=== PATIENT | female | born 1970 | race Caucasian/White ===

== ENCOUNTER → 2021-01-30 09:43 | Outpatient (BNVA) | payer BC, SELFPAY | PROVIDERS: Family Provider Nurse Practitioner Family; PCP Nurse Practitioner Family; Visit Provider Nurse Practitioner Family | DX: R10.811 Right upper quadrant abdominal tenderness (principal); I10 Essential (primary) hypertension; R60.0 Localized edema | CPT/HCPCS: 80053; 80061 ==

== ENCOUNTER 2021-03-03 09:55 | Outpatient (CLI) | payer BC, SELFPAY ==
--- NOTE | 2021-03-03 10:15 | US_ITS ---
WS: [id number] ULTRASOUND ABDOMEN LIMITED CLINICAL INFORMATION: R10.811 - Right upper quadrant abdominal tenderness COMPARISON: None. FINDINGS: Patient not NPO Liver Size: Normal. Craniocaudal length: 15.2 cm. Echogenicity: Normal. Surface nodularity: None. Mass (size and location): None. Bile ducts Intrahepatic ducts: Normal. Common bile duct diameter: 0.3 cm. Gallbladder Cholelithiasis. Gallbladder is contracted. Gallstones: Present Gallbladder sludge: None. Gallbladder wall thickening: None. Pericholecystic fluid: None. Sonographic Lam sign: Absent. Pancreas Normal as visualized. Right kidney: Normal. Hydronephrosis: None. Size: 12.4 cm x 6.1 cm x 4.1 cm. Abdominal aorta and IVC Visualized portions are normal. Ascites: None. US/US gall bladder [id number] IMPRESSION: 1. Cholelithiasis. Gallbladder is contracted. Normal gallbladder wall. Normal common bile duct. 2. Normal liver. No intrahepatic biliary duct dilatation. 3. No hydronephrosis in right kidney.
== END 2021-03-03 09:56 | disposition home or self-care (01) ==
LOC: RAD 09:59
PROVIDERS: PCP Nurse Practitioner Family; Visit Provider Nurse Practitioner Family
DX: R10.811 Right upper quadrant abdominal tenderness (principal); K80.20 Calculus of gallbladder without cholecystitis without obstruction
CPT/HCPCS: 76705

== ENCOUNTER → 2021-03-18 10:05 | Outpatient (BNVA) | payer BC, SELFPAY | PROVIDERS: PCP Nurse Practitioner Family; Visit Provider Surgery | DX: K80.20 Calculus of gallbladder without cholecystitis without obstruction (principal); Z20.822 Contact with and (suspected) exposure to COVID-19 | CPT/HCPCS: 87635 ==

== ENCOUNTER 2021-03-25 08:17 | Day surgery (SDC) | payer BC, SELFPAY ==
[2021-03-24 11:50] VITALS: BMI 22.0
[2021-03-25] VITALS (10 sets, daily range): BP systolic 118–149; BP diastolic 64–88; PULSE 55–87; RESP 17–22; TEMP 36.1–36.5; O2SAT 94–99
--- NOTE | 2021-03-25 08:30 | W.PM.OPSUD ---
Surgery/Procedure H&P Update DATE OF PROCEDURE: March 25, 2021 DATE H&P PERFORMED: 03/10/21 H&P UPDATE INFORMATION: I have reviewed H&P completed within last 30 days, I have examined patient prior to procedure and No changes to prior documentation PREOP DIAGNOSIS: Cholelithiasis PLANNED PROCEDURE: Operation Date: 03/25/21 09:45 Proposed Procedures p Laparoscopic Cholecystectomy 80704 k80.20(Not Applicable) - Brody Montgomery MD
--- NOTE | 2021-03-25 08:30 | ANES.PREANE2 ---
Pre-Anesthetic Assessment Pre-Anesthetic Assessment: Height/Weight: Height 1.73 m Weight 65.771 kg Preop Diagnosis: Cholelithiasis Proposed Procedure: Operation Date: 03/25/21 09:45 Proposed Procedures p Laparoscopic Cholecystectomy 26158 k80.20(Not Applicable) - Brody Montgomery MD Familial anesthetic complications: none Was Beta Helga taken within 24 hours: Yes Was Clonidine taken within 24 hours: N/A Last intake: > 8 hrs Social: Social History: No alcohol and No tobacco Exam: Pre-Anes Outpt Exam: alert, oriented x 3, clear to auscultation bilaterally and regular rate & rhythm Airway: Cervical ROM: WNL MP: 2 Dentition: Full CV/HEM: CV/HEM: Arrythmia (tachycardia) Comments: Patient states metoprolol is for her heart rate, not for blood pressure Anesthetic Plan: ASA status: 1 Anesthesia: General Risk of > 500 ml blood loss (7ml/kg in children): No PFSH Anesthesia PFSH: Surgical History (Updated 03/10/21 @ 15:11 by Brody Montgomery MD) H/O left breast biopsy H/O neck surgery H/O wisdom tooth extraction Hx of breast biopsy Hx of hysterectomy Social History (Updated 03/10/21 @ 15:00 by Latoya Cross LPN) Smoking and tobacco status: never smoked Second hand smoke exposure: No Alcohol intake: current Alcohol intake frequency: holidays/special occasions only Household members: spouse Housing: House Marital status: Data Anesthesia Cardiac Studies: No Data to Display
[2021-03-25] MEDS: sodium chloride 0.9% 1,000 ML 30 ML IV (08:46)
[2021-03-25] MEDS: ondansetron 2 mg/ML SDV 2 mL 4 MG IVP ×3 (09:47→10:48)
[2021-03-25] MEDS: metoclopramide 5 mg/mL SDV 2 mL 10 MG IVP (09:57)
[2021-03-25] MEDS: scopolamine 1.5 Patch 1 PATCH TRANSDERMA (10:25)
--- NOTE | 2021-03-25 11:08 | P.OP_ITS ---
Operative Report Date of procedure: March 25, 2021 Pre-op Diagnosis: Cholelithiasis Post-op diagnosis: same Procedure Done: Laparoscopic cholecystectomy Specimens removed/disposition: Gallbladder Surgeon: Brody Montgomery Anesthesia: General Condition: stable Disposition: PACU Procedure: The patient was taken to the operating room and was intubated under general anesthesia. After the antibiotic had been administered, the abdomen was prepped and draped in a sterile manner. Using a #15 blade, a 1 centimeter infraumbilical curvilinear incision was made and using an open Tod technique the peritoneal cavity was entered. A 10 millimeter port was placed and 15 millimeters of pneumoperitoneum was created. A 10 millimeter, 30 degrees scope was then introduced. Three 5 millimeter ports were placed in the epigastric, midclavicular and the anterior axillary line two fingerbreadths below the costal margin on the right side under the direct visualization. Ratcheted forceps were introduced into the lateral most port and was used to retract the fundus of the gallbladder cephalad and using forceps the infundibulum of the gallbladder was retracted laterally. Using L-hook cautery the peritoneum overlying the Calot's triangle was opened medially and laterally until the cystic duct and the cystic artery were skeletonized. Dissection was carried along the body of the gallbladder and after ensuring critical view of safety, 4 clips applied on the cystic duct and 3 clips applied on the cystic artery and cut leaving, 3 clips on the remaining portion of the duct and 2 clips on the remaining portion of the artery. The rest of the gallbladder was dissected off the liver using L-hook cautery. There was no bleeding or bile leaking noted from the gallbladder fossa and the clips appeared to be in place. An EndoCatch bag was introduced to r emove the gallbladder. All the ports were removed under direct visualization and there was no bleeding noted from the port sites. The fascia of the umbilicus was closed using [id number] 0 Vicryl sutures and the subcutaneous tissue was approximated using 3-0 Vicryl sutures. The skin at all four ports were closed using 4-0 Monocryl and Dermabond. A total of 10 millimeters of 0.5% Marcaine was infiltrated around the port sites. The patient was stable throughout the procedure.
[2021-03-25] MEDS: diphenhydrAMINE 50 mg/mL SDV 1mL 12.5 MG IVP (11:22)
--- NOTE | 2021-03-25 15:32 | ANE.PACU2 ---
Inpatient post-anesthesia follow up: Airway intact: Yes Vital signs: Temperature 97 F Pulse Rate 69 Respiratory Rate 18 Blood Pressure 149/88 Pulse Oximetry 98 Oxygen Delivery Me thod Room Air Oxygen Flow Rate Fraction of Inspir ed Oxygen Hydration adequate: Yes Nausea and vomiting: No Pain level: 2 Mental status: Baseline
== END 2021-03-25 12:16 | disposition home or self-care (01) ==
PROVIDERS: PCP Nurse Practitioner Family; Visit Provider Surgery
PROC: 0FT44ZZ Resection of Gallbladder, Percutaneous Endoscopic Approach (ICD-10-PCS; CPT 47562; principal; 2021-03-25 09:45)
DX: K81.1 Chronic cholecystitis (principal)
CPT/HCPCS: 47562; 88304; 96365; J0690; J1200; J2405; J2704; J2710; J2765; J3010; J3490; J7030

== ENCOUNTER → 2021-09-30 09:48 | Outpatient (BNVA) | payer BC, SELFPAY | PROVIDERS: PCP Nurse Practitioner Family; Visit Provider Nurse Practitioner Family | DX: R53.83 Other fatigue (principal); T14.8XXA Other injury of unspecified body region, initial encounter; X58.XXXA Exposure to other specified factors, initial encounter | CPT/HCPCS: 80053; 83550; 84443; 85025 ==

== ENCOUNTER 2021-12-31 07:39 | Outpatient (CLI) | payer BC, SELFPAY ==
--- NOTE | 2021-12-31 07:51 | MM_ITS ---
WS: [id number] BILATERAL 3D TOMOSYNTHESIS DIGITAL DIAGNOSTIC MAMMOGRAPHY WITH CAD CLINICAL INFORMATION: R92.8 - Other abnormal and inconclusive findings on diagn... HISTORY: Six-month follow-up outside examination diagnostic mammography. COMPARISON: Multiple outside examinations from [facility]. Most recent May 06, 2021 TECHNIQUE: Bilateral CC, MLO, and ML views. FINDINGS: The breasts are composed of heterogeneous fibroglandular density, which can limit the detection of sm all underlying mass lesions. Prior postoperative changes LEFT lumpectomy. Asymmetric density inner RI GHT breast posterior depth with a few tiny amorphous calcifications appears stable. Stable appearing punctate calcifications upper quadrant RIGHT breast. Recommend additional six-month follow-up to confirm stability. Dense nodular breast tissue LEFT breast is similar in appearance to the prior examinations. ULTRASOUND BREAST RIGHT TECHNIQUE: Ultrasound RIGHT breast focused area of concern. CLINICAL INFORMATION: R92.8 - Other abnormal and inconclusive findings on diagn... FINDINGS: Ultrasound RIGHT breast from the 12 to 6:00 position. Incidental simple cyst at the 1:00 position 2 c m from the nipple measuring 5 x 6 x 5 mm. Dense parenchymal tissue RIGHT breast. Dense shadowing lesion at the 4:00 position taller than wide measuring 7 x 7 mm which appears to kavya gate out on the anti-radial imaging felt to represent a ridge of dense parenchymal tissue. Recommend 6 month f ollow-up to confirm stability. MM/[place] [id number] IMPRESSION: BI-RADS: 3-Probably Benign FOLLOW UP: 6 Month Follow-up Recommend 6 month follow-up RIGHT diagnostic mammography and ultrasound with sp ot magnification views of the upper quadrant RIGHT breast calcifications Ultrasound with attention to the 5:00 dense lesion RIGHT breast felt to represe nt dense parenchymal tissue
== END 2021-12-31 07:40 | disposition home or self-care (01) ==
PROVIDERS: PCP Nurse Practitioner Family; Visit Provider Surgery
DX: N63.10 Unspecified lump in the right breast, unspecified quadrant (principal); R92.8 Other abnormal and inconclusive findings on diagnostic imaging of breast; R92.1 Mammographic calcification found on diagnostic imaging of breast
CPT/HCPCS: 76642; 77062

== ENCOUNTER → 2022-01-07 10:01 | Outpatient (BNVA) | payer BC, SELFPAY | PROVIDERS: PCP Nurse Practitioner Family; Visit Provider Nurse Practitioner Family | DX: E78.5 Hyperlipidemia, unspecified (principal); T78.40XA Allergy, unspecified, initial encounter; I10 Essential (primary) hypertension; D64.9 Anemia, unspecified | CPT/HCPCS: 80053; 80061; 85025; 86003 ==

== ENCOUNTER 2022-07-09 08:18 | Outpatient (CLI) | payer BC, SELFPAY ==
--- NOTE | 2022-07-09 08:40 | MM_ITS ---
WS: [id number] RIGHT 3D TOMOSYNTHESIS DIGITAL MAMMOGRAPHY WITH CAD CLINICAL INFORMATION: 6 MO F/U/ LESION/CALCS HISTORY: Six-month follow-up COMPARISON: December 31, 2021 TECHNIQUE: 3 views of the right breast were obtained. FINDINGS: The breasts are composed of heterogeneous fibroglandular density, which can limit the detection of sm all underlying mass lesions. Stable appearing faint amorphous calcifications upper quadrant RIGHT breast posterior depth are stabl e. These are unchanged since May 06, 2021. No new abnormalities RIGHT breast. Ultrasound is pending. ULTRASOUND BREAST RIGHT TECHNIQUE: Ultrasound right breast focused area of concern. CLINICAL INFORMATION: 6 MO F/U/ LESION/CALCS COMPARISON: December 31, 2021 FINDINGS: Ultrasound RIGHT breast the 1:00 position 2 cm from the nipple again demonstrates incidental simple c yst measuring 6.4 x 6.1 x 4.9 mm. Previously described irregular hypoechoic lesion at the 4:00 position 3 cm from the nipple is again v isualized and appears unchanged from previous. This measures 10 x 11 x 7 mm in maximum dimension and taller than wide. No shadowing or vascularity. This elongates out on the antiradial imaging similar t o. However, considering persistence and surrounding borders recommend further evaluation with ultraso und-guided biopsy. MM/[place] [id number] IMPRESSION: BI-RADS: 4-Suspicious Finding-Biopsy Should Be Considered FOLLOW UP: US Guided Biopsy Recommended RECOMMEND ULTRASOUND-GUIDED BIOPSY RIGHT BREAST 4:00 LESION 3 CM FROM THE NIPPL E.
== END 2022-07-09 08:19 | disposition home or self-care (01) ==
LOC: RAD 08:20
PROVIDERS: PCP Nurse Practitioner Family; Visit Provider Surgery
DX: R92.1 Mammographic calcification found on diagnostic imaging of breast (principal); N63.14 Unspecified lump in the right breast, lower inner quadrant
CPT/HCPCS: 76642; 77061

== ENCOUNTER 2022-08-06 09:00 | Day surgery (SDC) | payer BC, SELFPAY ==
[2022-08-03 10:26] VITALS: BMI 22.8
[2022-08-06 09:25] VITALS: BP 131/64; PULSE 89; RESP 16; TEMP 36.7; O2SAT 96
[2022-08-06] MEDS: sodium chloride 0.9% 1,000 ML 30 ML IV (09:48)
--- NOTE | 2022-08-06 10:07 | ANES.PREANE2 ---
Pre-Anesthetic Assessment Height/Weight: Height 1.73 m Weight 68.039 kg Temp Pulse Resp BP Pulse Ox O2 Del Method 98.1 F 89 16 131/64 96 08/06/22 09:25 08/06/22 09:25 08/06/22 09:25 08/06/22 09:25 08/06/22 09:25 08/06/22 09:25 Preop Diagnosis: screening, GERD Operation Date: 08/06/22 10:30 Proposed Procedures p Colonoscopy 30686,Z12.11(Not Applicable) - Dominick Loo DO s EGD(Not Applicable) - Dominick Loo DO Familial anesthetic complications: PONV Was Beta Helga taken within 24 hours: N/A (took last night) Was Clonidine taken within 24 hours: N/A Last intake: Intake Last Liquid Date 08/05/22 Last Liquid Time 22:30 Last Solid Date 08/04/22 Last Solid Time 18:00 Last Intake: 22:30 Social No alcohol and No tobacco Exam alert and oriented x 3 Airway Submandibular: within normal limits Cervical ROM: within normal limits Mallampati: Class II Dentition: full History/ROS No significant history except as noted Pulmonary Sleep Apnea CV/HEM Arrythmia (tachycardia- takes metoprolol) None reported Hepatic None reported GI Gastroesophageal Reflux Disease Metabolic None reported Musc/skel None reported Neuropsych None reported Anesthetic Plan ASA status: 2 Anesthesia: Anesthesia Evaluation and MAC Risk of > 500 ml blood loss (7ml/kg in children): No Medications/Allergies Home Medications Medication Instructions Recorded Confirmed Last Taken Type cetirizine 10 mg capsule (Zyrtec) 10 mg PO DAILY PRN Allergic 03/10/21 08/06/22 08/05/22 History Symptoms fluticasone propionate 50 1 spray intranasal DAILY 03/10/21 08/06/22 08/05/22 History mcg/actuation nasal spray,suspension (Flonase Allergy Relief) lactobacillus combination no.8 3 3,000 mmu cells PO DAILY 03/10/21 08/06/22 08/05/22 History billion cell capsule (Adult Probiotic) multivitamin (Daily Multi-Vitamin 1 tab PO DAILY 03/10/21 08/06/22 08/04/22 History tablet) pantoprazole 40 mg tablet,delayed 40 mg PO QAM #90 tabs 05/03/22 08/06/22 08/05/22 Rx release (Protonix) hydrochlorothiazide 25 mg tablet 25 mg PO DAILY 08/03/22 08/06/22 08/05/22 History metoprolol tartrate 25 mg tablet 25 mg PO DAILY 08/03/22 08/06/22 08/05/22 History Allergies Allergy/AdvReac Type Severity Reaction Status Date / Time Sulfa (Sulfonamide Allergy uknown Verified 05/19/22 10:17 Antibiotics) Current Medications Generic Name Dose Route Start Last Admin Trade Name Freq PRN Reason Stop Dose Admin Sodium Chloride 1,000 mls @ 30 mls/hr 08/06/22 09:15 08/06/22 09:48 Sodium Chloride 0.9% IV 08/07/22 09:14 30 mls/hr .Q24H LEO Administration PFSH Anesthesia Medical History GERD (gastroesophageal reflux disease) HTN (hypertension) Surgical History H/O left breast biopsy H/O neck surgery H/O wisdom tooth extraction Hx of breast biopsy Hx of hysterectomy Status post laparoscopic cholecystectomy (03/25/21) Social History Smoking and tobacco status: never smoked Second hand smoke exposure: No Alcohol intake: current Alcohol intake frequency: holidays/special occasions only Household members: spouse Housing: House Marital status: Data Anesthesia Cardiac Studies: No Data to Display
--- NOTE | 2022-08-06 10:24 | P.HP_ITS ---
Providers/Chief Complaint Primary Care Provider: GAUTAM Garcia Chief Complaint: Abdominal pain History of Present Illness Radha Cordova is a 51 year old female here for EGD and colonoscopy Medications/Allergies Home Medications Medication Instructions Recorded Confirmed Last Taken Type cetirizine 10 mg capsule (Zyrtec) 10 mg PO DAILY PRN Allergic 03/10/21 08/06/22 08/05/22 History Symptoms fluticasone propionate 50 1 spray intranasal DAILY 03/10/21 08/06/22 08/05/22 History mcg/actuation nasal spray,suspension (Flonase Allergy Relief) lactobacillus combination no.8 3 3,000 mmu cells PO DAILY 03/10/21 08/06/22 08/05/22 History billion cell capsule (Adult Probiotic) multivitamin (Daily Multi-Vitamin 1 tab PO DAILY 03/10/21 08/06/22 08/04/22 History tablet) pantoprazole 40 mg tablet,delayed 40 mg PO QAM #90 tabs 05/03/22 08/06/22 08/05/22 Rx release (Protonix) hydrochlorothiazide 25 mg tablet 25 mg PO DAILY 08/03/22 08/06/22 08/05/22 History metoprolol tartrate 25 mg tablet 25 mg PO DAILY 08/03/22 08/06/22 08/05/22 History Allergies Allergy/AdvReac Type Severity Reaction Status Date / Time Sulfa (Sulfonamide Allergy uknown Verified 05/19/22 10:17 Antibiotics) PFSH Acute PFSH: Medical History GERD (gastroesophageal reflux disease) HTN (hypertension) Surgical History H/O left breast biopsy H/O neck surgery H/O wisdom tooth extraction Hx of breast biopsy Hx of hysterectomy Status post laparoscopic cholecystectomy (03/25/21) Social History Smoking and tobacco status: never smoked Second hand smoke exposure: No Alcohol intake: current Alcohol intake frequency: holidays/special occasions only Household members: spouse Housing: House Marital status: Vitals/I&O/Wt Last Vital Signs Temp 98.1 F 08/06/22 09:25 Pulse 89 08/06/22 09:25 Resp 16 08/06/22 09:25 BP 131/64 08/06/22 09:25 Pulse Ox 96 08/06/22 09:25 O2 Del Method 08/06/22 09:25 A&P Assessment and plan (1) Colon cancer screening: (2) GERD (gastroesophageal reflux disease): Plan EGD and colonoscopy Attestations Medical Necessity Statement*: Home Coding Level of Care Code Acute Extruding Machine Operator for Chg Fwd Diagnoses Colon cancer screening Z12.11 GERD (gastroesophageal reflux disease) K21.9
[2022-08-06 10:54] VITALS: BP 122/78; PULSE 93; RESP 23; TEMP 36.2; O2SAT 98
--- NOTE | 2022-08-06 10:59 | ANE.PACU2 ---
Documented by User: Deneen Osorio CRNA 08/06/22 11:00 Inpatient post-anesthesia follow up: Airway intact: Yes Vital signs: Temperature 98.1 F Pulse Rate 89 Respiratory Rate 16 Blood Pressure 131/64 Pulse Oximetry 96 Oxygen Delivery Me thod Room Air Oxygen Flow Rate Fraction of Inspir ed Oxygen Hydration adequate: Yes Nausea and vomiting: No Pain level: 1 Mental status: Baseline Documented by User: Ryan Aleman 08/06/22 14:02 Inpatient post-anesthesia follow up: Airway intact: Yes
[2022-08-06 11:08] VITALS: BP 136/79; PULSE 80; RESP 18; O2SAT 98
== END 2022-08-06 11:38 | disposition home or self-care (01) ==
PROVIDERS: PCP Nurse Practitioner Family; Visit Provider Surgery
PROC: 0DJD8ZZ Inspection of Lower Intestinal Tract, Via Natural or Artificial Opening Endoscopic (ICD-10-PCS; CPT 45378; principal; 2022-08-06 10:30)
PROC: 0DJ08ZZ Inspection of Upper Intestinal Tract, Via Natural or Artificial Opening Endoscopic (ICD-10-PCS; CPT 43235; 2022-08-06 10:30)
DX: Z12.11 Encounter for screening for malignant neoplasm of colon (principal); K21.9 Gastro-esophageal reflux disease without esophagitis; K29.50 Unspecified chronic gastritis without bleeding; B96.81 Helicobacter pylori [H. pylori] as the cause of diseases classified elsewhere; K64.8 Other hemorrhoids; K44.9 Diaphragmatic hernia without obstruction or gangrene; D37.9 Neoplasm of uncertain behavior of digestive organ, unspecified; I10 Essential (primary) hypertension; G47.30 Sleep apnea, unspecified
CPT/HCPCS: 43239; 45378; 88305; 88342; J2704; J7030

== ENCOUNTER 2022-08-10 12:00 | Outpatient (CLI) | payer BC, SELFPAY ==
--- NOTE | 2022-08-10 12:30 | US_ITS ---
WS: [id number] ULTRASOUND-GUIDED RIGHT BREAST BIOPSY CLINICAL INFORMATION: breast mass FINDINGS: The procedure including risks, benefits, and complications were discussed with the patient who agreed to proceed. Using sterile technique patient was prepped and draped in the usual sterile fashion. Aft er 1% lidocaine utilizing real-time ultrasound guidance 5 14-gauge cores were obtained of the RIGHT b reast lesion at the 4 o'clock position 3 cm the nipple. Subsequently a titanium clip was placed in th e biopsy cavity. No immediate complications. Pathology demonstrates A. Breast, right, 4 o'clock, 3 cm from nipple , ultrasound-guided biopsy: - Fibroadenoma. - No malignancy identified. US/[place] [id number] IMPRESSION: 1. Uncomplicated ultrasound-guided RIGHT breast biopsy. 2. The pathology demonstrates fibroadenoma. No malignancy identified. 3. Recommend return to annual screening mammography. BI-RADS: 2-Benign FOLLOW UP: 1 Year Follow-up
== END 2022-08-10 12:01 | disposition home or self-care (01) ==
PROVIDERS: PCP Nurse Practitioner Family; Visit Provider Surgery
DX: D24.1 Benign neoplasm of right breast (principal)
CPT/HCPCS: 19083; 88305

== ENCOUNTER → 2022-10-01 10:20 | Outpatient (BNVA) | payer BC, SELFPAY | PROVIDERS: PCP Nurse Practitioner Family; Visit Provider Nurse Practitioner Family | DX: E03.9 Hypothyroidism, unspecified (principal); I10 Essential (primary) hypertension; E78.5 Hyperlipidemia, unspecified | CPT/HCPCS: 80053; 80061; 82672; 84144; 84403; 84439; 84443; 84480; 85025 ==

== ENCOUNTER → 2022-10-20 15:02 | Outpatient (BNVA) | payer BC, SELFPAY | PROVIDERS: PCP Nurse Practitioner Family; Visit Provider Nurse Practitioner Family | DX: I10 Essential (primary) hypertension (principal); E03.9 Hypothyroidism, unspecified | CPT/HCPCS: 82672 ==

== ENCOUNTER 2023-09-26 14:56 | Outpatient (CLI) | payer BC, SELFPAY ==
--- NOTE | 2023-09-26 15:01 | MM_ITS ---
WS: [id number] BILATERAL 3D TOMOSYNTHESIS DIGITAL DIAGNOSTIC MAMMOGRAPHY WITH CAD CLINICAL INFORMATION: N63.10 - Unspecified lump in the right breast, unspecifie... HISTORY: Bilateral breast lumps COMPARISON: 07/09/2022 TECHNIQUE: Bilateral CC, MLO, and ML views. FINDINGS: The breasts are composed of heterogeneous fibroglandular density, which can limit the detection of sm all underlying mass lesions. Palpable markers RIGHT breast with dense underlying parenchymal density. Ultrasound of this area is pending. Prior biopsy marker RIGHT breast. Palpable marker upper outer LEFT breast. Ultrasound of this area is pending. Dense parenchymal tissue in this area. ULTRASOUND BREAST BILATERAL TECHNIQUE: Ultrasound bilateral breast focused area of concern. CLINICAL INFORMATION: N63.10 - Unspecified lump in the right breast, unspecifie... FINDINGS: RIGHT BREAST: Ultrasound RIGHT breast at the 4 o'clock position demonstrates a hypoechoic ovoid lesio n which is unchanged in appearance since 08/10/2022 and was previously biopsied and demonstrated katy gn fibroadenoma. Today this measures 7.9 x 8.8 x 5.3 mm Ultrasound RIGHT breast at the 6 o'clock position in the area of concern demonstrates an ellipsoid hy poechoic area which may represent a lymph node but indeterminate. Recommend further evaluation with u ltrasound-guided biopsy considering palpable concern LEFT BREAST: Ultrasound LEFT breast at the 3 o'clock position demonstrates a simple cyst measuring 3 x 4 mm which has a benign appearance. IMPRESSION: MM/[place] [id number] BI-RADS: 4-Suspicious Finding-Biopsy Should Be Considered FOLLOW UP: US Guided Biopsy Recommended Recommend ultrasound-guided biopsy of the palpable lesion 6 o'clock position RI GHT breast
--- NOTE | 2023-09-26 15:30 | US_ITS ---
WS: [id number] BILATERAL 3D TOMOSYNTHESIS DIGITAL DIAGNOSTIC MAMMOGRAPHY WITH CAD CLINICAL INFORMATION: N63.10 - Unspecified lump in the right breast, unspecifie... HISTORY: Bilateral breast lumps COMPARISON: 07/09/2022 TECHNIQUE: Bilateral CC, MLO, and ML views. FINDINGS: The breasts are composed of heterogeneous fibroglandular density, which can limit the detection of sm all underlying mass lesions. Palpable markers RIGHT breast with dense underlying parenchymal density. Ultrasound of this area is pending. Prior biopsy marker RIGHT breast. Palpable marker upper outer LEFT breast. Ultrasound of this area is pending. Dense parenchymal tissue in this area. ULTRASOUND BREAST BILATERAL TECHNIQUE: Ultrasound bilateral breast focused area of concern. CLINICAL INFORMATION: N63.10 - Unspecified lump in the right breast, unspecifie... FINDINGS: RIGHT BREAST: Ultrasound RIGHT breast at the 4 o'clock position demonstrates a hypoechoic ovoid lesio n which is unchanged in appearance since 08/10/2022 and was previously biopsied and demonstrated katy gn fibroadenoma. Today this measures 7.9 x 8.8 x 5.3 mm Ultrasound RIGHT breast at the 6 o'clock position in the area of concern demonstrates an ellipsoid hy poechoic area which may represent a lymph node but indeterminate. Recommend further evaluation with u ltrasound-guided biopsy considering palpable concern LEFT BREAST: Ultrasound LEFT breast at the 3 o'clock position demonstrates a simple cyst measuring 3 x 4 mm which has a benign appearance. IMPRESSION: US/US breast BI limited* [id number] BI-RADS: 4-Suspicious Finding-Biopsy Should Be Considered FOLLOW UP: US Guided Biopsy Recommended Recommend ultrasound-guided biopsy of the palpable lesion 6 o'clock position RI GHT breast
== END 2023-09-26 14:57 | disposition home or self-care (01) ==
LOC: RAD 14:56
PROVIDERS: PCP Nurse Practitioner Family; Visit Provider Nurse Practitioner Family
DX: N63.14 Unspecified lump in the right breast, lower inner quadrant (principal); N63.25 Unspecified lump in the left breast, overlapping quadrants
CPT/HCPCS: 76642; 77062; G0279

== ENCOUNTER 2023-10-07 10:06 | Outpatient (CLI) | payer BC, SELFPAY ==
--- NOTE | 2023-10-07 11:00 | US_ITS ---
WS: [id number] ULTRASOUND-GUIDED RIGHT BREAST BIOPSY HISTORY: N63.10 - Unspecified lump in the right breast, unspecifie... COMPARISON: 09/26/2023, 07/09/2022 Procedure, risks and complications are explained to the patient. Medications are reviewed. Consent is obtained. The mass in the RIGHT breast is localized with ultrasound. The most concerning area is a hypoechoic i rregular shaped mass near 5:00, 2 cm from the nipple. Skin is cleansed with ChloraPrep and anesthetiz ed with 1% buffered lidocaine. Small dermatome is made. Under sterile conditions mass is biopsied wit h a 14-gauge Achieve needle. Multiple core biopsies are performed. Material placed in formalin and se nt to pathology for review. No complications encountered. Breast tissue marker (Bard ultrasound enhanced ribbon): Single. Patient left the radiology suite with no complications. [place] is [place] [facility] [place] with any concerns. IMPRESSION: 1. Uncomplicated core needle biopsy hypoechoic mass near 5:00, 2 cm from the nipple. US/[place] [id number] PATHOLOGY: Benign breast parenchyma with fibroadenomatoid features. Fibrous tan ign breast parenchyma. No invasive malignancy. No in situ. RECOMMENDATION: Diagnostic RIGHT breast mammogram 6 months with possible ultras ound.
== END 2023-10-07 10:07 | disposition home or self-care (01) ==
LOC: RAD 10:06
PROVIDERS: PCP Nurse Practitioner Family; Visit Provider Nurse Practitioner Family
DX: D24.1 Benign neoplasm of right breast (principal); N63.14 Unspecified lump in the right breast, lower inner quadrant
CPT/HCPCS: 19083; 88305

== ENCOUNTER → 2024-03-13 14:52 | Outpatient (BNVA) | payer BC, SELFPAY | PROVIDERS: PCP Nurse Practitioner Family; Visit Provider Nurse Practitioner Family | DX: R53.83 Other fatigue (principal); I10 Essential (primary) hypertension; E55.9 Vitamin D deficiency, unspecified; E78.5 Hyperlipidemia, unspecified; Z79.899 Other long term (current) drug therapy | CPT/HCPCS: 80053; 80061; 82306; 84443; 85025 ==

== ENCOUNTER 2024-05-14 10:18 | Outpatient (CLI) | payer BC, SELFPAY ==
--- NOTE | 2024-05-14 10:30 | MM_ITS ---
WS: [id number] ADDITIONAL VIEWS RIGHT MAMMOGRAM WITH DIGITAL BREAST TOMOSYNTHESIS. RIGHT BREAST ULTRASOUND HISTORY: N63.10 - Unspecified lump in the right breast, prior biopsy, 6-month follow-up. COMPARISON: 09/26/2023, 07/09/2022, 05/06/2021, breast biopsy 10/07/2023 RIGHT MAMMOGRAM: Spot compression views and true ML with digital breast tomosynthesis and SM. Dense fibroglandular tissue. Biopsy clips are noted in the medial RIGHT breast. The more recent biops y clip is anterior with no adjacent suspicious mass or calcification. No increasing mass or distortio n. RIGHT BREAST ULTRASOUND 2-D and color Doppler imaging submitted. Heterogeneous hypoechoic mass is reidentified in the RIGHT breast at 5:00, 2 cm from the nipple. Biop sy clip is also identified. This mass measures 0.8 x 0.9 x 0.5 cm. Very similar in appearance to the prior study. MM/[place] [id number] IMPRESSION: BI-RADS: 2-Benign FOLLOW UP: 1 Year Follow-up Previously biopsied mass in the RIGHT breast at 5:00 is similar in appearance t o the prior studies. No additional imaging necessary dedicated to the RIGHT farhana ast unless this area is becoming more palpable or increasing in size clinically .
--- NOTE | 2024-05-14 10:47 | US_ITS ---
WS: [id number] ADDITIONAL VIEWS RIGHT MAMMOGRAM WITH DIGITAL BREAST TOMOSYNTHESIS. RIGHT BREAST ULTRASOUND HISTORY: N63.10 - Unspecified lump in the right breast, prior biopsy, 6-month follow-up. COMPARISON: 09/26/2023, 07/09/2022, 05/06/2021, breast biopsy 10/07/2023 RIGHT MAMMOGRAM: Spot compression views and true ML with digital breast tomosynthesis and SM. Dense fibroglandular tissue. Biopsy clips are noted in the medial RIGHT breast. The more recent biops y clip is anterior with no adjacent suspicious mass or calcification. No increasing mass or distortio n. RIGHT BREAST ULTRASOUND 2-D and color Doppler imaging submitted. Heterogeneous hypoechoic mass is reidentified in the RIGHT breast at 5:00, 2 cm from the nipple. Biop sy clip is also identified. This mass measures 0.8 x 0.9 x 0.5 cm. Very similar in appearance to the prior study. US/US breast RT limited* [id number] IMPRESSION: BI-RADS: 2-Benign FOLLOW UP: 1 Year Follow-up Previously biopsied mass in the RIGHT breast at 5:00 is similar in appearance t o the prior studies. No additional imaging necessary dedicated to the RIGHT farhana ast unless this area is becoming more palpable or increasing in size clinically .
== END 2024-05-14 10:19 | disposition home or self-care (01) ==
PROVIDERS: PCP Nurse Practitioner Family; Visit Provider Nurse Practitioner Family
DX: N63.14 Unspecified lump in the right breast, lower inner quadrant (principal); R92.333 Mammographic heterogeneous density, bilateral breasts
CPT/HCPCS: 76642; 77061; G0279

== ENCOUNTER 2025-06-11 10:11 | Outpatient (CLI) | payer BC, SELFPAY ==
--- NOTE | 2025-06-11 10:17 | MM_ITS ---
WS: [id number] DIAGNOSTIC BILATERAL DIGITAL BREAST TOMOSYNTHESIS MAMMOGRAPHY WITH CAD LEFT breast ultrasound, limited HISTORY: MASSES OF BOTH BREASTS, no new palpable areas. COMPARISON: 05/14/2024, 09/26/2023, 12/31/2021 TECHNIQUE: Bilateral craniocaudad, mediolateral oblique, and mediolateral views are submitted with tomosynthesis and SM. computer aided detection utilized. Breast composition: The breasts are heterogeneously dense, which may obscure small masses. Focal asymmetry of increased density seen only on the LEFT MLO projection in the superior breast near 12:00. Similar findings on some of the additional prior mammograms. The remaining breasts are negative. No new additional findings. Biopsy clips in the medial RIGHT breast. LEFT breast ultrasound, limited. Very dense fibroglandular soft tissue in the LEFT breast from 11-1 o'clock. There are a few small prominent ducts. There is no shadowing or solid mass. MM/MM diag BI tomosynthesis [id number] IMPRESSION: BI-RADS: 2 - Benign FOLLOW UP: 1 Year Follow-up
--- NOTE | 2025-06-11 10:45 | US_ITS ---
WS: [id number] DIAGNOSTIC BILATERAL DIGITAL BREAST TOMOSYNTHESIS MAMMOGRAPHY WITH CAD LEFT breast ultrasound, limited HISTORY: MASSES OF BOTH BREASTS, no new palpable areas. COMPARISON: 05/14/2024, 09/26/2023, 12/31/2021 TECHNIQUE: Bilateral craniocaudad, mediolateral oblique, and mediolateral views are submitted with tomosynthesis and SM. computer aided detection utilized. Breast composition: The breasts are heterogeneously dense, which may obscure small masses. Focal asymmetry of increased density seen only on the LEFT MLO projection in the superior breast near 12:00. Similar findings on some of the additional prior mammograms. The remaining breasts are negative. No new additional findings. Biopsy clips in the medial RIGHT breast. LEFT breast ultrasound, limited. Very dense fibroglandular soft tissue in the LEFT breast from 11-1 o'clock. There are a few small prominent ducts. There is no shadowing or solid mass. US/US breast LT limited* [id number] IMPRESSION: BI-RADS: 2 - Benign FOLLOW UP: 1 Year Follow-up
== END 2025-06-11 10:12 | disposition home or self-care (01) ==
LOC: RAD 10:12
PROVIDERS: PCP Nurse Practitioner Family; Visit Provider Nurse Practitioner Family
DX: R92.8 Other abnormal and inconclusive findings on diagnostic imaging of breast (principal); Z97.8 Presence of other specified devices; R92.333 Mammographic heterogeneous density, bilateral breasts
CPT/HCPCS: 76642; 77062; G0279

== ENCOUNTER → 2025-09-30 09:07 | Outpatient (BNVA) | payer BC, SELFPAY | PROVIDERS: PCP Nurse Practitioner Family; Visit Provider Nurse Practitioner Women's Health | DX: Z13.0 Encounter for screening for diseases of the blood and blood-forming organs and certain disorders involving the immune mechanism (principal); Z13.228 Encounter for screening for other metabolic disorders; Z13.1 Encounter for screening for diabetes mellitus; Z13.220 Encounter for screening for lipoid disorders; R53.83 Other fatigue; N95.1 Menopausal and female climacteric states; R63.5 Abnormal weight gain; I10 Essential (primary) hypertension | CPT/HCPCS: 80053; 80061; 82306; 82607; 82670; 82728; 83036; 83525; 84439; 84443; 84481; 85025 ==